=== PATIENT | female | born 1955 | race Caucasian/White ===

== ENCOUNTER 2023-09-10 00:23 | Inpatient (IN) | payer MEDICARE, SELFPAY ==
[2023-09-09 20:22] VITALS: BP 114/69; BMI 25.2
[2023-09-09 20:27] LABS: Glucose - Point of Care 578 mg/dl (70-99)
[2023-09-09 20:42] LABS: % Basophils 0.3 % (0-2); % Eosinophils 0.3 % (0-6); % Immature Granulocytes 0.4 % (0-0.5); % Lymphocytes 3.2 % (20.5-51.1); % Monocytes 6.4 % (1.7-9.3); % Neutrophils 89.4 % (42.2-75.2); Absolute Lymphocytes 0.3 10^3/uL (1.2-3.4); Absolute Monocytes 0.7 10^3/uL (0.1-0.6); Absolute Neutrophils 9.1 10^3/uL (1.4-6.5); Hematocrit 36.6 % (37.0-47.0); Mean Corp Hgb Conc. 35.5 g/dL (33.0-37.0); Mean Corpuscular Hgb 31.9 pg (27.0-31.0); Mean Corpuscular Volume 89.9 fL (81.0-99.0); Nucleated Red Blood Cells % 0 %; Platelet Count 183 10^3/uL (130-400); Red Blood Cell Count 4.07 10^6/uL (4.20-5.40); Red Cell Dist. Width 13.3 % (11.5-14.5); White Blood Cell Count 10.1 10^3/uL (4.8-10.8)
[2023-09-09 20:54] LABS: COVID-19 Antigen Negative (Negative)
[2023-09-09 20:54] LABS: Lactic Acid 4.4 mmol/L (0.7-2.0)
[2023-09-09 20:56] LABS: ALT (SGPT) 15 U/L (0-35); AST (SGOT) 16 U/L (14-36); Albumin 3.6 g/dl (3.5-5.0); Alkaline Phosphatase 85 U/L (38-126); Blood Urea Nitrogen 27 mg/dl (7-17); Calcium 8.9 mg/dl (8.4-10.2); Carbon Dioxide 19 mmol/L (22-30); Chloride 104 mmol/L (98-107); Estimated Creatinine Clearance 49 ml/min; Potassium 3.5 mmol/L (3.5-5.1); Sodium 137 mmol/L (135-145); Total Bilirubin 0.7 mg/dl (0.2-1.3); Total Protein 6.1 g/dl (6.3-8.2); eGFR > 60.00
[2023-09-09 21:00] VITALS: BP 117/76
[2023-09-09 21:08] LABS: Glucose 671 mg/dl (70-99)
[2023-09-09 21:40] LABS: Urine Albumin Negative (Neg - Trace); Urine Bilirubin Negative (Negative); Urine Character Clear (Clear); Urine Color Yellow; Urine Glucose 3+ (Negative); Urine Ketone Negative (Negative); Urine Leukocyte Negative (Negative); Urine Nitrite Negative (Negative); Urine Occult Blood Negative (Negative); Urine Urobilinogen Negative (Neg - 1+)
[2023-09-09 21:43] LABS: Venous Blood Gas B.E. -5.6 mmol/L (-4 to +4); Venous Blood Gas HCO3 17.7 mmol/L (22-27); Venous Blood Gas O2 Sat % 99.6 %; Venous Blood Gas pCO2 28 mmHg (35-48); Venous Blood Gas pH 7.41 (7.32-7.43); Venous Blood Gas pO2 228 mmHg (30-50)
[2023-09-09 22:00] VITALS: BP 124/65
--- NOTE | 2023-09-09 22:00 | ED.GENMED ---
History of Present Illness
General
Chief Complaint: Blood Sugar Problem
Source: ambulance crew
Time Seen by Provider: 09/09/23 21:50
Travel History
Have you had any contact with someone who has COVID-19?: Unable to Answer
Do you have any symptoms of coronavirus? Fever > 100 degrees, chills, cough, shortness of breath, sore throat, loss of taste or smell, muscle aches, or headache?: Unable to Answer
History of Present Illness
History of Present Illness:
68-year-old female sent to the emergency room from halfway for evaluation of high sugar. An Accu-Chek obtained before dinner measured greater than 400. Covering physician recommended patient be sent to the emergency room. Upon arrival here
the patient noted to be febrile. Patient is aphasic and does not provide any history.
Past History
Past History
ED Past Medical History: Cancer (Right breast cancer), HTN, Hypercholesterolemia, NIDDM and Other (osteoporosis, Alzheimer's dementia)
ED Past Surgical History: Gynecological (Right breast lumpectomy)
Patient has exhibited threatening behavior?: No
PSI?: No
Social History
Tobacco: Non-smoker
Alcohol: None
Personal:
Living: halfway
Family History
Family History: Unable to obtain
Phy Exam
Physical Exam
Physical Exam:
General: Awake, Alert, nonverbal, appears chronically ill
Vitals: Febrile, hypoxic on room air
Head: Atraumatic
Eyes: Pupils equal, EOMI
Throat: Airway intact, no exudates, dry mucosa
Neck: Trachea midline
Lungs: Rhonchi bilateral bases
Heart: Regular rate, no murmurs
Abd: Soft, Nontender, No pulsatile mass
Neuro: Grossly nonfocal
Skin: Warm, dry, no rash
Extremities: pulses equal b/l, no edema
Course
Orders/Labs/Results
Orders:
Orders
09/09/23 20:29
Electrocardiogram (*1) Urgent
Reason for Study: Fatigue / Weakness
09/09/23 20:30
EKG- Treatment ONCE
09/09/23 20:31
COVID-19 Antigen Urgent
Source: Nasal Swab
Complete Blood Count/With Diff Urgent
Comprehensive Metabolic Panel Urgent
Influenza A+B Rapid Molecular Urgent
SHARA Source: Nasal Swab
Specimen Description:
Date Specimen was Collected: 09/09/23
Time Specimen was Collected: 20:29
09/09/23 20:33
Lactic Acid Urgent
Blood Culture Urgent
SHARA Source: Blood/Venous
Specimen Description:
09/09/23 21:31
Urinalysis Reflex To Culture Urgent
Date Specimen was Collected: 09/09/23
Time Specimen was Collected: 20:29
09/09/23 21:35
B-Hydroxybutyrate Urgent
Venous Blood Gas Urgent
%Oxygen/Room Air: 95%/4L
09/09/23 21:57
0.9% Sodium Chloride 1000 ml [Nss] 1,000 ml IV BOLUS
09/09/23 21:58
Insulin Aspart [NOVOLOG vial] 10 units SC NOW STA
09/09/23 21:59
Acetaminophen [Tylenol] 650 mg PO NOW STA
09/09/23 22:13
Blood Culture Urgent
SHARA Source: Blood/Venous
Specimen Description:
09/09/23 22:31
CR Chest Portable - 1 View Urgent
Comment:
Reason For Exam: fever, hypoxia
Reason Study Needs to be Portable: Unable to Transport
09/09/23 23:16
Piperacillin/Tazo 4.5 Gram [Zosyn] 4.5 gram in 100 ml IV NOW
09/09/23 23:58
Admit/Transfer Patient As Directed
Co-Sign Provider:
Level of Care: Inpatient admission
Assign to:: Telemetry
Physician / Group: Buzz
Diagnosis: Fever, Hyperglycemia
Reason for Telemetry: Arrhythmia
Date to Stop Telemetry: 09/12/23
Time to Stop Telemetry: 11:00
Reason for Hospitalization: Fever, Hyperglycemia
Expected length of stay greater than two midnights?: Yes
ELOS- Estimated Length of Stay in days: 3
I certify the patient meets the requirements for IP care: Yes
09/09/23 23:59
Vancomycin [Vancocin] 1,500 mg 0.9% Sodium Chloride [Nss] 20 ml 0.9% Sodium Chloride 250 ml [Nss] 250 ml IV NOW
09/10/23 00:04
Code Status As Directed
Resuscitation Status: Do not resuscitate
Based on pt advanced directive or healthcare POA form: Yes
09/10/23 00:05
DNR Bracelet Application ONCE
09/10/23 00:28
0.9% Sodium Chloride 1000 ml [Nss] 1,000 ml IV 150 mls/hr
Acetaminophen [Tylenol] 650 mg PO Q4HPRN PRN
Dextrose 50%-Water [Dextrose 50% Syringe] 12.5 grams IV F25GHEL PRN
Glucagon [GlucaGen] 1 mg IM PRN PRN
Ondansetron Injectable [Zofran] 4 mg IV Q6HPRN PRN
Piperacillin/Tazo 3.375 Gram [Zosyn] 3.375 gram in 50 ml IV Q6H
09/10/23 00:28
Activity As Directed
Activity Level: Ambulate
With Assistance
Bedside Glucose Monitoring As Directed
Frequency: AC&HS
Comment: Change to q6h if pt on TPN, tube feeding or not eating
Bladder Scan As Directed
Follow Bladder Retention/Intermittent Cath Algorithm?: Yes
PRN if no void in __ hours: 6
Frequency: Per Retention Algorithm
If Bladder Scan Result >: 400
then:: Straight cath
I/O [Intake/ Output] As Directed
Frequency: Per unit guidelines
Precautions As Directed
Type of Precautions: Aspiration
Straight Cath As Directed
Frequency: Per Retention Algorithm
Additional Instructions: straight cath as needed per acute urinary retention algorithm for 24 hrs
Additional Instructions: for bladder scan greater than 400 mL
Vital Signs As Directed
Frequency: Per unit guidelines
Weight As Directed
Frequency: Daily
Oxygen Therapy [O2 Therapy] [RESP] Routine
Titrate/Wean O2 to maintain O2 sat greater than (%): 94
Ot Eval And Treat Routine
PT Consult [Pt Eval And Treat] Routine
Activity Level: Ambulate
With Assistance
Speech Therapy Eval & Treat Routine
DX Deep Vein Thrombosis Video Routine
09/10/23 00:30
Creatine Phosphokinase Routine
Procalcitonin Routine
PCT Algorithmm Indication: Sepsis
TSH Reflex To Free T4 Routine
09/10/23 01:00
Insulin Glargine Lantus [Lantus] 14 units Subcutaneous Insulin Syringe [Syringe-Insulin] 0 unit SC ONCE
09/10/23 06:00
Basic Metabolic Panel IN AM
Complete Blood Count/No Diff IN AM
Glycohemoglobin (HgbA1c) IN AM
09/10/23 07:30
Insulin Aspart Corrective Mod [Novolog Flexpen-Moderate Resistance] See Protocol SC AC
09/10/23 08:00
Aspirin Chewable [Low Strength Aspirin] 81 mg PO DAILY
Lisinopril [Zestril] 20 mg PO DAILY
Pantoprazole [Protonix IV] 40 mg IV DAILY
Risperidone [Risperdal] 0.5 mg PO BID
09/10/23 18:00
Enoxaparin Sodium [Lovenox] 40 mg SC QPM
09/10/23 22:00
Atorvastatin [Lipitor] 20 mg PO HS
insulin glargine 16 unit SC HS
09/11/23 Breakfast
NPO
Allow oral meds: Yes
Allow clear liquids: Sips of Clears
09/12/23 11:00
DC Protocol for Telemetry ONCE
Abnormal Lab Results
09/09/23 09/09/23 09/09/23
20:26 20:31 20:33
RBC 4.07 L 10^6/uL
(4.20-5.40)
Hct 36.6 L %
(37.0-47.0)
MCH 31.9 H pg
(27.0-31.0)
Absolute Neuts (auto) 9.1 H 10^3/uL
(1.4-6.5)
Absolute Lymphs (auto) 0.3 L 10^3/uL
(1.2-3.4)
Absolute Monos (auto) 0.7 H 10^3/uL
(0.1-0.6)
Neutrophils % 89.4 H %
(42.2-75.2)
Lymphocytes % 3.2 L %
(20.5-51.1)
VBG pCO2
VBG pO2
VBG HCO3
Carbon Dioxide 19 L mmol/L
(22-30)
BUN 27 H mg/dl
(7-17)
Glucose 671 H* mg/dl
(70-99)
Lactic Acid 4.4 H* mmol/L
(0.7-2.0)
Total Protein 6.1 L g/dl
(6.3-8.2)
Urine Glucose
POC Glucose 578 H* mg/dl
(70-99)
09/09/23 09/09/23 09/09/23
21:31 21:35 23:22
RBC
Hct
MCH
Absolute Neuts (auto)
Absolute Lymphs (auto)
Absolute Monos (auto)
Neutrophils %
Lymphocytes %
VBG pCO2 28 L mmHg
(35-48)
VBG pO2 228 H mmHg
(30-50)
VBG HCO3 17.7 L mmol/L
(22-27)
Carbon Dioxide
BUN
Glucose
Lactic Acid
Total Protein
Urine Glucose 3+ A
(Negative)
POC Glucose 440 H mg/dl
(70-99)
09/09/23 20:31
09/09/23 20:31
Vital Signs
Initial and Last Documented VS:
Initial Vital Signs
Temp Pulse Resp BP Pulse Ox
102.4 F H 97 26 114/69 98
09/09/23 20:22 09/09/23 20:22 09/09/23 20:22 09/09/23 20:22 09/09/23 20:22
Last Documented Vital Signs
Temp Pulse Resp BP Pulse Ox
99.6 F 74 18 138/77 98
09/09/23 23:57 09/10/23 00:30 09/10/23 00:30 09/10/23 00:00 09/10/23 00:30
MDM/Problems Addressed
Differential Diagnosis Includes:
Pneumonia, urinary tract infection, influenza, other viral illness, bacteremia
MDM/Problems Addressed:
Patient sent to the emergency room for high glucose. Found to be febrile here. Serum glucose 671. No significant anion gap. pH is normal on a venous blood gas. Beta hydroxybutyrate levels normal. Therefore no evidence for DKA. Urinalysis not
consistent with urinary tract infection. COVID and flu are negative. Chest x-ray does not show convincing evidence for pneumonia though the patient is a bit hypoxic and he is not normally on supplemental oxygen. Pneumonia still a possibility with
x-ray changes lagging behind. Patient will require hospitalization. Broad-spectrum antibiotics initiated given fever and elevated lactate the lactate may be related to her hyperglycemia as well. She has not been tachycardic or hypotensive. Liter
of normal saline given. 10 units of NovoLog
Chronic conditions affecting care: HTN and Other (Dementia)
Acute Exacerbation and/or Progression of Chronic Illness: DM
*Radiology
Radiology exam reviewed: preliminary read by ED provider (Reviewed the patient's chest x-ray see no infiltrate)
*Pulse Oximetry
Patient hypoxic: yes
*EKG
Interpreted by ED Provider?: Yes
Heart Rate: 98
Rate: normal
Rhythm: sinus
QRS Pattern: right bundle branch block
Ischemia: non-specific ST changes
*X Ray Examiner Of Aircraft Interpretation
Rate: normal
Interpretation: normal
Rhythm: sinus
*Critical Care Note
Total Time (30-74mins, 75-104mins- exclusive of procedures): 35 min
comment:
Critical care statement: A total of 35 minutes of critical care time was provided for this patient. This includes management of unstable vital signs, evaluation of the patient at bedside, reviewing the patient's pertinent medical records, discussion
with consultants, review of old EKGs and review of pertinent medical records. This time with separate from time utilized to perform the aforementioned documented procedures
Patient Management
Social determinants of health affecting care: Living situation
ED Attending Note
-
Portions of this chart may have been created with voice recognition software.� Occasional wrong word or��sound alike� substitutions may have occurred due to the inherent limitations of voice recognition software.
Discharge Plan
Departure
Patient Disposition: Admit
Date of Disposition: 09/09/23
Time of Disposition: 23:20
Admit to: IMU
Presentation/result/management discussed w/ accepting MD/DO: Hospitalist
Condition: Fair
Discharge Problem:
Acute hyperglycemia, Fever
Interventions
Interventions:
*Risk Screen - Suicide Last Done: 09/09/23 20:28
*General Assessment Last Done: 09/09/23 20:28
*Neglect/Abuse Screening Last Done: 09/09/23 20:28
*ED COVID-19 Vaccine History Last Done: 09/09/23 20:28
ED- Neurological Assessment Last Done: 09/09/23 20:28
[2023-09-09 22:02] LABS: B-Hydroxybutyrate 0.12 mmol/L (0.02-0.27)
[2023-09-09] MEDS: NSS 1000 IV (22:06)
[2023-09-09] MEDS: TYLENOL 650 MG PO (22:09)
[2023-09-09] MEDS: NOVOLOG vial 10 UNITS SC (22:10)
[2023-09-09 23:00] VITALS: BP 130/118
[2023-09-09 23:23] LABS: Glucose - Point of Care 440 mg/dl (70-99)
[2023-09-09] MEDS: ZOSYN 100 IV (23:25)
[2023-09-10] VITALS (12 sets, daily range): BP systolic 133–185; BP diastolic 75–89; PULSE 97; O2SAT 96; BMI 25.6
[2023-09-10] MEDS: VANCOCIN 300 ML IV (00:03)
[2023-09-10] MEDS: VANCOCIN 300 MG IV (00:03)
--- NOTE | 2023-09-10 00:11 | HPS.HSE ---
Family Physician
-
Family Physician: Martínez Arizmendi
Chief Complaint
-
Hyperglycemia
History of Present Illness
Patient is a 68y F with PMH significant for advanced dementia and chronic aphasia who presents to ED from local [facility] for evaluation of hyperglycemia. Glucose at the [facility] was > 400 on AccuCheck before dinner and patient was sent to the ED for
evaluation. There was no report of any other symptoms, complaints, etc. In the ED, patient was noted to be febrile to 102.4.
Patient is awake and alert. She does not speak, but she nods her head to answer Y/N questions. She denies any specific complaints at the time of my exam including pain, dyspnea, nausea, etc.
Medical History
Past Medical History
Past Medical History: Reports Other
Additional Past Medical History:
Senile Dementia
Chronic Aphasia
DM-II
Hypertension
Chronic Dysphagia
Breast Cancer
Past Surgical History: Reports Other
Additional Past Surgical History:
Right Lumpectomy
Social History
Unable to obtain full social history at this time due to: Patient Non-verbal
Family History
Family History: Unable to Obtain
Allergies / Home Medications
Allergies reflects when Allergies were last updated in [facility].
Home Medications with original date entered in [facility]
Allergy/Medication List:
Allergies
Allergy/AdvReac Type Severity Reaction Status Date / Time
Sulfa (Sulfonamide Allergy Hives Verified 09/20/22 12:52
Antibiotics)
Home Medications
atorvastatin 20 mg tablet 20 mg PO HS High cholesterol 04/19/20
risperidone 0.5 mg tablet 0.5 mg PO BID Schizoaffective disorder 04/19/20
acetaminophen 500 mg tablet (Tylenol Extra Strength) 500 mg PO BID Pain 06/13/21
aspirin 81 mg chewable tablet 81 mg PO DAILY Blood clot prevention/tx 09/21/21
lisinopril 20 mg tablet 20 mg PO DAILY Blood pressure 09/21/21
insulin glargine 100 unit/mL (3 mL) subcutaneous pen 16 unit SC HS Diabetes 03/21/22
cyanocobalamin (vitamin B-12) 1,000 mcg sublingual tablet 1,000 mcg PO BID Supplement 09/20/22
metformin 1,000 mg tablet 1,000 mg PO BIDWMEAL 09/09/23
Review of Systems
-
Unable to obtain full review of systems at this time due to: Patient Non-verbal
History Source: Patient (Limited ROS given communication issues.)
Respiratory: Denies Trouble Breathing
Cardiac: Denies Chest Pain
Abdomen/GI: Denies Nausea or Vomiting
Musculoskeletal: Denies Joint Pain
Neurological: Denies Headache
Physical Exam
Vital Signs
Vital Signs
Temp Pulse Resp BP Pulse Ox
99.6 F 84 19 130/118 97
09/09/23 23:57 09/09/23 23:45 09/09/23 23:45 09/09/23 23:00 09/09/23 23:45
Physical Exam
General: Other (68y F in no acute distress.)
HEENT: Moist mucous membranes and PERRLA
Respiratory: Clear; No Wheezes, Rales or Rhonchi
Cardiac: S1/S2 and Regular Rhythm; No Murmur
GI: Soft, Non Tender, Non Distended and Normal Bowel Sounds
Musculoskeletal: No Clubbing, No Cyanosis and No Edema
Neuro: Awake, Alert and Other (No verbal communications. Nods to Y/N questions. Moves all extremities spontaneously.)
Psych: No Agitated
Laboratory Results
-
09/09/23 20:31
09/09/23 20:31
Laboratory Results
Lactic Acid 4.4 mmol/L (0.7-2.0) H* 09/09/23 20:33
Total Bilirubin 0.7 mg/dl (0.2-1.3) 09/09/23 20:31
AST 16 U/L (14-36) 09/09/23 20:31
ALT 15 U/L (0-35) 09/09/23 20:31
Alkaline Phosphatase 85 U/L (38-126) 09/09/23 20:31
Impression/Plan
-
A/P: Patient is a 68y F with PMH significant for dementia and chronic aphasia who presents to ED from local [facility] for evaluation of hyperglycemia and is not to be febrile.
DM-II with Hyperglycemia
- Admit for further evaluation and treatment.
- Not consistent with DKA.
- Insulin dose was adjusted as of 09/02 - but unclear whether increased or decreased (just see order was changed on 09/02).
- Continue basal : bolus insulin regimen and adjust as needed for improved control.
- IVF support.
- Update A1C.
Fever
- Unclear etiology.
- Patient in no distress. Denies all specific complaints on limited ROS.
- ? aspiration as had had similar in the past / has chronic dysphagia
- COVID / Influenza are negative.
- Will continue IV Zosyn for now.
- Follow-up culture data.
- Check procalcitonin.
- Follow fever curve. Monitor for any specific / focal symptoms.
Senile Dementia
- Stable. Continue risperidone.
Chronic Aphasia
Chronic Dysphagia
- NPO pending Speech evaluation.
- Aspiration precautions.
Benign Hypertension
- Stable. Continue lisinopril with holding parameters.
DVT Prophylaxis: Lovenox
Code Status: DNR per [facility] record.
[2023-09-10] MEDS: LANTUS 0.140000000000000013 UNITS SC (00:39)
[2023-09-10 00:57] LABS: Creatine Phosphokinase 104 U/L (30-135)
[2023-09-10 01:26] LABS: Procalcitonin 0.08 ng/ml (0.0-0.25)
[2023-09-10] MEDS: NSS 1000 IV ×3 (01:59→21:24)
[2023-09-10 02:36] LABS: TSH Reflex To Free T4 1.04 uIU/ml (0.47-4.68)
[2023-09-10 05:19] LABS: Hematocrit 35.4 % (37.0-47.0); Hemoglobin 12.3 g/dL (12.0-16.0); Mean Corp Hgb Conc. 34.7 g/dL (33.0-37.0); Mean Corpuscular Hgb 31.7 pg (27.0-31.0); Mean Corpuscular Volume 91.2 fL (81.0-99.0); Platelet Count 178 10^3/uL (130-400); Red Blood Cell Count 3.88 10^6/uL (4.20-5.40); Red Cell Dist. Width 13.3 % (11.5-14.5); White Blood Cell Count 12.7 10^3/uL (4.8-10.8)
[2023-09-10 06:07] LABS: Blood Urea Nitrogen 21 mg/dl (7-17); Calcium 8.4 mg/dl (8.4-10.2); Carbon Dioxide 23 mmol/L (22-30); Chloride 109 mmol/L (98-107); Estimated Creatinine Clearance 56 ml/min; Glucose 90 mg/dl (70-99); Potassium 3.6 mmol/L (3.5-5.1); Sodium 143 mmol/L (135-145); eGFR > 60.00
[2023-09-10] MEDS: ZOSYN 50 IV ×4 (06:55→23:36)
[2023-09-10 07:15] LABS: Glucose - Point of Care 204 mg/dl (70-99)
[2023-09-10 08:07] LABS: Glucose - Point of Care 99 mg/dl (70-99)
[2023-09-10] MEDS: LOW STRENGTH ASPIRIN 81 MG PO (08:34)
[2023-09-10] MEDS: PROTONIX IV 40 MG IV (08:34)
[2023-09-10] MEDS: ZESTRIL 20 MG PO (08:34)
[2023-09-10] MEDS: RISPERDAL 0.5 MG PO ×2 (08:34→19:58)
[2023-09-10] MEDS: NSS (PRESERVATIVE FREE) 10 ML IV (08:35)
--- NOTE | 2023-09-10 09:08 | W.PN.HOSP.TC ---
Today's Communication/Plan
-
consult DM EXTRACTIONS TECHNOLOGIST
consult ID
follow cultures
trend lactic acid
Assessment / Plan
Assessment / Plan
pt is a 68 year old female
Type DM-II with Hyperglycemia (was here 2021 and meds stopped due to hypoglycemia but now on insulin and metformin)--Not consistent with DKA--Insulin dose was adjusted as of 09/02 but unclear whether increased or decreased (just see order was changed
on 09/02)--Continue basal:bolus insulin regimen and adjust as needed for improved control--IVF support--Update K6H--dctqapj DM EXTRACTIONS TECHNOLOGIST
Fever with lactic acidosis--Unclear etiology--Patient in no distress.� Denies all specific complaints on limited ROS but unclear reliability--? aspiration as had had similar in the past/has chronic dysphagia--Covid/flu/CXR/procalcitonin neg--cont IV
zosyn--follow lactates--consult ID
Senile Dementia (not reliable historian)--Stable--Continue risperidone.
Chronic Aphasia/Chronic Dysphagia--apprec speech--VSE pending--Aspiration precautions.
Essential Hypertension--Continue lisinopril with holding parameters.
DVT Prophylaxis:� Lovenox
Code Status:� DNR per NH record.
Anticipated Discharge: > 48 hours
Subjective/Interval History
-
Date of Service: September 10, 2023
pt without c/o
Objective Data
-
Labs:
Laboratory Results
09/09/23 09/10/23
20:31 05:03
WBC 12.7 H
Hgb 12.3
Hct 35.4 L
Plt Count 178
Sodium 143
Potassium 3.6
Chloride 109 H
Carbon Dioxide 23
BUN 21 H
Creatinine 0.7
Glucose 671 H* 90
Calcium 8.4
Vital Signs:
max temp for 24 hours
02/27/24
20:22
Temp 102.4 F H
Vital Signs
Temp Pulse Resp BP Pulse Ox
97.9 F 57 14 140/76 98
09/10/23 07:00 09/10/23 07:00 09/10/23 07:00 09/10/23 07:00 09/10/23 07:00
Review of Systems
-
Unable to obtain full review of systems at this time due to: Dementia (not great historian)
Physical Exam
-
General: Well Developed, Well Nourished and No Apparent Distress
HEENT: Normocephalic and Atraumatic
Respiratory: Clear to Auscultation; Negative Wheezes, Rales, Rhonchi or Crackles
Cardiac: Regular Rhythm and S1/S2; Negative Murmur
GI: Soft, Nontender, Nondistended and Normal Bowel Sounds
Musculoskeletal: No Clubbing, No Cyanosis and No Edema
Neuro: Awake
Psych: Calm
--- NOTE | 2023-09-10 09:24 | PTOTSP ---
SPEECH THERAPY SWALLOW EVALUATION:
Patient presents with clinical signs of oropharyngeal dysphagia, likely chronic related to history of dementia and known oropharyngeal dysphagia at baseline, and acutely exacerbated by current hyperglycemia/fever. Patient is at high risk for
aspiration and related complications due to cognitive impairment and impulsivity. Recommend Videofluoroscopic Swallowing Study to further define swallow physiology at this time. Recommend patient to be NPO except for necessary medications crushed in
puree until results of VSE. Speech therapy to follow, provide additional recommendations following results of VSE, and continue to provide diagnostic swallow therapy as appropriate.
RECOMMEND:
1) Videofluoroscopic Swallowing Study
2) NPO except for necessary medications crushed in puree until results of VSE
3) Speech therapy to follow, provide additional recommendations following results of VSE, and continue to provide diagnostic swallow therapy as appropriate
--- NOTE | 2023-09-10 09:39 | CM ---
Patient seen at bedside with physician. Patient is aphasic but did answer some questions. Patient Lives at [facility] in the memory care unit. CM called to the facility. OSWALD Bowen spoke with CM. Patient is independent in ambulation with no
assistive devices but is non verbal a majority of the time. Patient has a standing DM medication at the facility but no sliding scale, PRN's are not allowed at the personal care. Patient does not participate with PT/OT. Patient Nurse stated that
patient could return but needed clear orders for DM medications. Patient daughter Amanda is primary contact. CM will call to review plan for discharge with Daughter. CM will continue to follow for discharge planning needs.
Plan; return to [facility] vs SNF pending medical treatment of care
[2023-09-10 09:58] LABS: Glycohemoglobin (HgbA1c) 6.7 % (4.0-5.6)
--- NOTE | 2023-09-10 10:49 | PN.DE.MGMTRT ---
Insulin Management
- -
09/10/2023 Diabetes Management Consult
Patient admitted from Memory Care unit at [facility] due to hyperglycemia, found to have fever. PMH: R breast CA, HTN, HCL, type 2 diabetes, senile dementia, osteoporosis. Prior to admission diabetes regimen included metformin 1000 mg BID and lantus
16 units @ hS. A1C 6.7%, cr .7, egfr >60. Patient glucose on arrival 671, given 10 units novolog. 14 units HS lantus given, fasting glucose 99.
Lantus 16 units @ HS ordered. Corrective insulin changed from moderate to low. Patient is NPO. When diet resumes will restart metformin 1000 mg BID.
Will follow
Diabetes History
- -
Type of Diabetes: 2 requiring insulin
Pre-Admission Diabetes Regimen
09/09/23 09/10/23
20:31 05:03
Creatinine 0.8 0.7
Lab Results
Hemoglobin A1c 6.7 % (4.0-5.6) H 09/10/23 05:03
Insulin Pump Settings
IP Diabetes Regimen
09/09/23 09/09/23 09/09/23
20:26 20:31 23:22
Glucose 671 H*
POC Glucose 578 H* 440 H
09/10/23 09/10/23 09/10/23
00:38 05:03 08:06
Glucose 90
POC Glucose 204 H 99
Patient Education
[2023-09-10 12:14] LABS: Glucose - Point of Care 131 mg/dl (70-99)
[2023-09-10] MEDS: NOVOLOG FLEXPEN-LOW RESISTANCE SC (12:23)
--- NOTE | 2023-09-10 12:59 | PTOTSP ---
SPEECH THERAPY VIDEOFLUOROSCOPIC SWALLOWING STUDY:
Patient presents with moderate oral dysphagia and moderate-severe pharyngeal dysphagia characterized by:
-Aspiration of thin liquid via teaspoon (PAS 7) and cup (PAS 8); aspiration of Mildly-thick liquid via straw (PAS 7)
-Penetration of Mildly-thick liquid via teaspoon (PAS 2) and cup (PAS 4), Moderately-thick liquid via teaspoon (PAS 4)
Aspiration/penetration episodes inconsistently elicited cough response to airway invasion. Oropharyngeal dysphagia is chronic related to prior history of dementia, and acutely exacerbated due to current AMS secondary to hyperglycemia/fever. Patient
is at high risk for aspiration and related complications given cognitive impairments and impulsivity. Recommend cautious oral diet of IDDSI Level 4 Puree and IDDSI Level 2 Moderately-thick liquids. Medications crushed in puree. Strict aspiration
precautions includin:1 assist/supervision; small single sips/bites; alternate textures; upright positioning; oral care QID and increased mobility as able to reduce risk for nosocomial infection. Discontinue oral diet and contact ST for
re-assessment should patient present with signs of aspiration or a decline in mental or respiratory status. Speech therapy to follow, monitor CXR and labs, assess diet tolerance and modify as appropriate, provide continued education regarding
aspiration risks/precautions.
RECOMMEND:
1) IDDSI Level 4 Puree and IDDSI Level 2 Moderately-thick liquids
2) Medications crushed in puree
3) Strict aspiration precautions includin:1 assist/supervision; small single sips/bites; alternate textures; upright positioning; oral care QID and increased mobility as able to reduce risk for nosocomial infection
4) Discontinue oral diet and contact ST for re-assessment should patient present with signs of aspiration or a decline in mental or respiratory status
5) Speech therapy to follow, monitor CXR and labs, assess diet tolerance and modify as appropriate, provide continued education regarding aspiration risks/precautions
[2023-09-10 13:17] LABS: Lactic Acid 1.9 mmol/L (0.7-2.0)
[2023-09-10] MEDS: NSS IV (16:25)
--- NOTE | 2023-09-10 16:37 | CON.ID ---
Consultation
-
Date/Time Consultation Requested: 09/10/2023 09:20
Date/Time Consultation Performed: 09/10/2023 1600
Requesting Provider: Dr. Alicea
Performing Provider: Dr. Cerda
Reason for Consultation: Fever
Chief Complaint / Past History
History of Present Illness
Autumn Wharton is a 68-year-old female being evaluated at the request of Dr. Alicea in regards to fever. History is obtained from chart review along with patient interview.
The patient has a significant past medical history of Alzheimer's disease and presents to [facility] from a local facility after she was found to have an elevated blood sugar level in the 400 range. At presentation, she was also found to be
febrile to 102.4 �F. She was started on empiric antibiotics, and Infectious Diseases is asked to comment upon further antimicrobial therapy management.
At this point in time she denies any pain. She admits to cough, but does not have any sputum production. She denies any chest pain. She denies any abdominal pain, nausea or vomiting. She denies any dysuria.
Past History
Additional Past Medical History:
Breast cancer
HTN
Dyslipidemia
DM
Alzheimer's
Aphasia
Additional Past Surgical History:
Right lumpectomy
Allergy History:
Sulfa (Sulfonamide Antibiotics) Allergy (Verified 09/20/22 12:52)
Hives
Medications Reviewed: Yes
Current Antibiotics:
Zosyn 3.375 g IV every 6 hours
Social History
Tobacco: Non-Smoker
Alcohol: None
Drug: None
Personal:
Living: Senior Living
Family History
Family History: Not Pertinent
Review of Systems
Vital Signs
Temp Pulse Resp BP Pulse Ox
97.6 F 71 20 158/85 98
09/10/23 15:00 09/10/23 15:00 09/10/23 15:00 09/10/23 15:00 09/10/23 15:00
Physical Exam
Physical Exam
Constitutional: No Acute Distress, Comfortable and Non-toxic
Eyes: Pupils Equal, Pupils Round, No Conjunctival Hemorrhage and Sclera Anicteric
Oral: No Thrush and No Ulcers
Cardiovascular: Regular Rate and S1/S2; Negative S3/S4
Pulmonary: Clear, Coarse and Non Labored; Negative Wheezes or Rales
Gastrointestinal: Soft, Non Tender, Non Distended, Normal Bowel Sounds, No Rebound, No Guarding and Hepatomegaly
Genito-Urinary: Negative Callejas, Suprapubic Tenderness or CVA Tenderness
Extremities: Edema; Negative Cyanosis or Erythema
Musculoskeletal: Negative Joint Swelling or Joint Effusion
Skin: Warm and Dry; Negative Rash or Jaundice
Wound: None
Neurological: Awake and Alert
Psychological: Confused
Lab / Diagnostic Study Results
09/10/23 05:03
09/10/23 05:03
Abs Immat Gran (auto) 0.0 10^3/uL (0-0.05) 09/09/23 20:31
Absolute Neuts (auto) 9.1 10^3/uL (1.4-6.5) H 09/09/23 20:31
Absolute Lymphs (auto) 0.3 10^3/uL (1.2-3.4) L 09/09/23 20:31
Absolute Monos (auto) 0.7 10^3/uL (0.1-0.6) H 09/09/23 20:31
Absolute Basos (auto) 0.0 10^3/uL (0-0.2) 09/09/23 20:31
Immature Gran % 0.4 % (0-0.5) 09/09/23 20:31
Neutrophils % 89.4 % (42.2-75.2) H 09/09/23 20:31
Lymphocytes % 3.2 % (20.5-51.1) L 09/09/23 20:31
Monocytes % 6.4 % (1.7-9.3) 09/09/23 20:31
Eosinophils % 0.3 % (0-6) 09/09/23 20:31
Basophils % 0.3 % (0-2) 09/09/23 20:31
Lactic Acid 1.9 mmol/L (0.7-2.0) 09/10/23 12:44
Procalcitonin 0.08 ng/ml (0.0-0.25) 09/10/23 00:30
Microbiology Results
Micro:
09/10/23 05:03 MRSA Screen - Pending
Nose
09/09/23 22:13 Blood Culture - Pending
Blood/Venous
09/09/23 20:31 Influenza Types A & B (MICHELLE) - Final
Nasal Swab Negative for Influenza A & B, NAAT
Negative results must be combined with clinical observations
and patient history.
Nucleic Acid Amplification test (NAAT)performed on the
[employer] platform.
09/09/23 20:33 Blood Culture - Pending
Blood/Venous
Imaging:
09/09/2023 CXR (portable): Lungs are clear. No pleural effusion or pneumothorax seen. Heart is enlarged with mild aortic arch calcification. No acute disease is noted. Please see full dictation for additional detail. Film personally viewed.
Assessment / Plan
Fever
Leukocytosis
Lactic acidosis
Elevated glucose; improved
Breast cancer
HTN
Dyslipidemia
DM
Alzheimer's
Aphasia
Recommendations:
Continue current empiric antibiotics (Zosyn).
Blood cultures are currently pending. Will follow
Repeat cultures for temperature greater than 101 degrees.
Monitor white count and temperature curve.
Will further de-escalate antibiotics as additional data is returned.
[2023-09-10 17:07] LABS: Glucose - Point of Care 278 mg/dl (70-99)
[2023-09-10] MEDS: LOVENOX 40 MG SC (18:47)
[2023-09-10] MEDS: NOVOLOG FLEXPEN-LOW RESISTANCE 2 UNITS SC (19:51)
[2023-09-10 19:53] LABS: Glucose - Point of Care 243 mg/dl (70-99)
--- NOTE | 2023-09-10 20:04 | EDRN ---
Vital signs captured from previous shift.
[2023-09-10 21:25] LABS: Glucose - Point of Care 264 mg/dl (70-99)
[2023-09-10 21:36] LABS: Lactic Acid 1.7 mmol/L (0.7-2.0)
[2023-09-10] MEDS: LIPITOR 20 MG PO (21:50)
[2023-09-10] MEDS: LANTUS 0.160000000000000003 UNITS SC (21:52)
--- NOTE | 2023-09-10 23:57 | PTCARENOTE ---
Received patient from ER. Patient awake oriented to self. Knows name and and is conversing with staff. Patient required b/l mitts as she pulled her IV out. Bed alarm intact, video med sitter and call salazar in reach. Tolerating b/l mitts.
[2023-09-11] VITALS (7 sets, daily range): BP systolic 157–182; BP diastolic 75–100
[2023-09-11] MEDS: NSS 1000 IV ×2 (04:20→12:22)
[2023-09-11] MEDS: ZOSYN 50 IV ×2 (05:01→12:22)
[2023-09-11 07:28] LABS: Glucose - Point of Care 107 mg/dl (70-99)
[2023-09-11 07:35] LABS: Hemoglobin 11.1 g/dL (12.0-16.0); Mean Corp Hgb Conc. 34.7 g/dL (33.0-37.0); Mean Corpuscular Hgb 31.3 pg (27.0-31.0); Mean Corpuscular Volume 90.1 fL (81.0-99.0); Platelet Count 153 10^3/uL (130-400); Red Blood Cell Count 3.55 10^6/uL (4.20-5.40); Red Cell Dist. Width 13.5 % (11.5-14.5); White Blood Cell Count 6.6 10^3/uL (4.8-10.8)
--- NOTE | 2023-09-11 07:40 | PN.DE.MGMTRT ---
Insulin Management
- -
09/10/2023 Diabetes Management Consult
Patient admitted from Memory Care unit at [facility] due to hyperglycemia, found to have fever. PMH: R breast CA, HTN, HCL, type 2 diabetes, senile dementia, osteoporosis. Prior to admission diabetes regimen included metformin 1000 mg BID and lantus
16 units @ hS. A1C 6.7%, cr .7, egfr >60. Patient glucose on arrival 671, given 10 units novolog. 14 units HS lantus given, fasting glucose 99.
Lantus 16 units @ HS ordered. Corrective insulin changed from moderate to low. Patient is NPO. When diet resumes will restart metformin 1000 mg BID.
Will follow
09/11/2023 Diabetes Management Follow Up
Diet started, IDDSI 4 pureed, 1600 calorie added this AM. Glucose trended up to 278 pre dinner and 264 @ HS. Will resume metformin 1000 mg BID, first dose this AM. Received 16 units lantus @ hs, fasting glucose not yet reported. When reported
will assess for needed changes. A1C is 6.7%.
Diabetes History
- -
Type of Diabetes: 2
Pre-Admission Diabetes Regimen
Lab Results
Hemoglobin A1c 6.7 % (4.0-5.6) H 09/10/23 05:03
Insulin Pump Settings
IP Diabetes Regimen
09/10/23 09/10/23 09/10/23
08:06 12:13 17:05
POC Glucose 99 131 H 278 H
09/10/23 09/10/23 09/11/23
19:51 21:24 07:26
POC Glucose 243 H 264 H 107 H
Patient Education
[2023-09-11] MEDS: NOVOLOG FLEXPEN-LOW RESISTANCE SC ×3 (08:18→18:06)
[2023-09-11 09:40] LABS: ALT (SGPT) 13 U/L (0-35); AST (SGOT) 17 U/L (14-36); Albumin 3.3 g/dl (3.5-5.0); Alkaline Phosphatase 67 U/L (38-126); Blood Urea Nitrogen 11 mg/dl (7-17); Calcium 8.1 mg/dl (8.4-10.2); Carbon Dioxide 25 mmol/L (22-30); Chloride 112 mmol/L (98-107); Estimated Creatinine Clearance 66 ml/min; Glucose 109 mg/dl (70-99); Magnesium 1.2 mg/dl (1.6-2.3); Potassium 3.5 mmol/L (3.5-5.1); Sodium 139 mmol/L (135-145); Total Bilirubin 0.8 mg/dl (0.2-1.3); Total Protein 5.7 g/dl (6.3-8.2); eGFR > 60.00
[2023-09-11] MEDS: PROTONIX IV 40 MG IV (10:19)
[2023-09-11] MEDS: NSS (PRESERVATIVE FREE) 10 ML IV (10:20)
[2023-09-11] MEDS: GLUCOPHAGE 1000 MG PO (10:21)
[2023-09-11] MEDS: ZESTRIL 20 MG PO (10:21)
[2023-09-11] MEDS: RISPERDAL 0.5 MG PO (10:22)
[2023-09-11] MEDS: LOW STRENGTH ASPIRIN 81 MG PO (10:22)
[2023-09-11 11:52] LABS: Glucose - Point of Care 117 mg/dl (70-99)
--- NOTE | 2023-09-11 13:59 | W.PN.HOSP.TC ---
Today's Communication/Plan
-
cont zosyn
await speech
cut IVF in 07/15
apprec ID and CODING TECHNICIAN-DM
Assessment / Plan
Assessment / Plan
pt is a 68 year old female
Type DM-II with Hyperglycemia (was here 2021 and meds stopped due to hypoglycemia but now on insulin and metformin)--Not DKA--Insulin dose was adjusted as of 09/02 but unclear whether increased or decreased (just see order was changed on
09/02)--Continue basal:bolus insulin regimen and adjust as needed for improved control--IVF support--A1C 6.7 -apprec DM CODING TECHNICIAN
Fever with lactic acidosis--Unclear etiology--resolved?-- Denies all specific complaints on limited ROS but unclear reliability--? aspiration as had had similar in the past/has chronic dysphagia (nursing reports coughing with
eating)--Covid/flu/CXR/procalcitonin neg--cont IV zosyn--follow lactates--apprec ID
Senile Dementia (not reliable historian)--Stable--Continue risperidone.
Chronic Aphasia/Chronic Dysphagia--apprec speech--Aspiration precautions.
Essential Hypertension--Continue lisinopril with holding parameters.
DVT Prophylaxis:� Lovenox
Code Status:� DNR per NH record.
Anticipated Discharge: 24 - 48 hours
Subjective/Interval History
-
Date of Service: September 11, 2023
pt choking with feeding per nursing
Objective Data
-
Labs:
Laboratory Results
09/11/23 09/11/23
06:31 08:41
WBC 6.6
Hgb 11.1 L
Hct 32.0 L
Plt Count 153
Sodium Cancelled 139
Potassium Cancelled 3.5
Chloride Cancelled 112 H
Carbon Dioxide Cancelled 25
BUN Cancelled 11
Creatinine Cancelled 0.6
Glucose Cancelled 109 H
Calcium Cancelled 8.1 L
Total Bilirubin Cancelled 0.8
AST Cancelled 17
ALT Cancelled 13
Alkaline Phosphatase Cancelled 67
Vital Signs:
max temp for 24 hours
09/10/23
21:18
Temp 98.3 F
Vital Signs
Temp Pulse Resp BP Pulse Ox
98.3 F 59 20 182/93 98
09/11/23 11:16 09/11/23 11:16 09/11/23 11:16 09/11/23 11:16 09/11/23 11:16
I&O
09/10/23 09/11/23 09/12/23
06:59 06:59 06:59
Output Total 300 / 300
Balance -300 / -300
Review of Systems
-
Unable to obtain full review of systems at this time due to: Patient Non-verbal (aphasic)
Physical Exam
-
General: Well Developed, Well Nourished and No Apparent Distress
HEENT: Normocephalic and Atraumatic; Negative Oxygen
Respiratory: Clear to Auscultation; Negative Wheezes, Rales, Rhonchi or Crackles
Cardiac: Regular Rhythm and S1/S2; Negative Murmur
GI: Soft, Nontender, Nondistended and Normal Bowel Sounds
Musculoskeletal: No Clubbing, No Cyanosis and No Edema
Neuro: Other (aphasic--mitts on)
--- NOTE | 2023-09-11 14:00 | CM ---
Patient seen at bedside with physician. Patient plan is to return to [facility]. PT/OT recommendation is for home health. CM will update facility and call to family to review discharge plan. CM will continue to follow discharge planning
needs.
Plan; SNF vs [facility] with VN supports
--- NOTE | 2023-09-11 15:09 | PTOTSP ---
Speech Therapy Evaluation
RN reported constant coughing with lunch tray. This tallier also noted frequent episodes of the same with strong and sustained coughing, red face and eye tearing. Chin tuck was not consistently helpful and required constant cues to utilize. Cognitive
deficits along with impaired timing coordination of swallow contribute to inconsistency with tolerance. Patient is at high risk for chronic aspiration.
Recommend
1. NPO with nonoral meds or crushed in applesauce if needed.
2. GOC discussion.
3. Given advanced dementia oral diet would be more appropriate than feeding tube.
4. Oral care at east 4x/day with suction toothbrush.
5. Not appropriate for ice chips at this time.
ST will follow
[2023-09-11] MEDS: MAGNESIUM SULFATE 100 IV (15:16)
--- NOTE | 2023-09-11 15:16 | W.PN.ID1 ---
Date of Service
Date of Service: September 11, 2023
Today's Communication
D/C antibiotics and observe.
Assessment / Plan
Fever
- no further episodes
Leukocytosis
- resolved
Lactic acidosis
- resolved
Elevated glucose; improved
Breast cancer
HTN
Dyslipidemia
DM
Alzheimer's
Aphasia
Recommendations:
Clinically improved. Cultures negative to date. WBC normalized.
Will D/C further abx and observe.
Monitor white count and temperature curve.
����������������������������������������������������������
Chief Complaint
-: Fever and Leukocytosis
Subjective / Review of Systems
Review of Systems: No Fever and No Chills
Vital Signs / Physical Exam
Vital Signs
Vital Signs
Temp Pulse Resp BP Pulse Ox
98.3 F 59 20 182/93 98
09/11/23 11:16 09/11/23 11:16 09/11/23 11:16 09/11/23 11:16 09/11/23 11:16
Physical Exam
Constitutional: Comfortable, Chronically Ill and Non-toxic
Oropharyngeal: Negative Thrush
Cardiovascular: S1/S2; Negative S3/S4
Pulmonary: Non Labored
Gastrointestinal: Soft, Non Distended and Normal Bowel Sounds
Skin: Negative Rash or Jaundice
Neurological: Awake and Alert
Psychological: Confused
Objective Data
Lab Data
Lab Results
09/11/23 06:31
09/11/23 08:41
Estimated Creat Clear 66 ml/min 09/11/23 08:41
Lactic Acid 1.7 mmol/L (0.7-2.0) 09/10/23 21:19
Total Bilirubin 0.8 mg/dl (0.2-1.3) 09/11/23 08:41
AST 17 U/L (14-36) 09/11/23 08:41
ALT 13 U/L (0-35) 09/11/23 08:41
Alkaline Phosphatase 67 U/L (38-126) 09/11/23 08:41
Most recent labs reviewed.
Micro Results:
09/10/23 05:03 MRSA Screen - Final
Nose No Methicillin Resistant Staphylococcus aureus isolated.
09/09/23 22:13 Blood Culture - Preliminary
Blood/Venous No Growth in 24 hours- Final report to follow
09/09/23 20:33 Blood Culture - Preliminary
Blood/Venous No Growth in 24 hours- Final report to follow
09/09/23 20:31 Influenza Types A & B (MICHELLE) - Final
Nasal Swab Negative for Influenza A & B, NAAT
Negative results must be combined with clinical observations
and patient history.
Nucleic Acid Amplification test (NAAT)performed on the
[employer] platform.
Imaging:
09/09/2023 CXR (portable): Lungs are clear. No pleural effusion or pneumothorax seen. Heart is enlarged with mild aortic arch calcification. No acute disease is noted. Please see full dictation for additional detail. Film personally viewed.
[2023-09-11 17:25] LABS: Glucose - Point of Care 97 mg/dl (70-99)
[2023-09-11] MEDS: GLUCOPHAGE PO (18:07)
[2023-09-11] MEDS: LOVENOX SC (19:49)
[2023-09-11 21:35] LABS: Glucose - Point of Care 76 mg/dl (70-99)
--- NOTE | 2023-09-11 21:57 | W.PN.UPDATE ---
Addendum entered and electronically signed by TREVOR Richey 09/12/23 03:21:
maximus held tonight as BG remains low even with addition of d5nss
Original Note:
Update Note
Progress Note Update
0 pt strict NPO due to poss aspiration.
Pt blood sugar now on low side 76. RN reported more sleepy. Due to NPO status and BG trending low now will change ivf to d5ns and closey watch BG.
[2023-09-11] MEDS: D5/0.9% SODIUM CHLORIDE 1000 IV (22:20)
[2023-09-11] MEDS: RISPERDAL PO (22:24)
[2023-09-11] MEDS: LIPITOR PO (22:25)
[2023-09-11] MEDS: LANTUS SC (22:38)
[2023-09-11] MEDS: NSS IV (23:15)
[2023-09-12 00:09] LABS: Glucose - Point of Care 81 mg/dl (70-99)
[2023-09-12 03:25] VITALS: BP 168/109
[2023-09-12 05:30] VITALS: BMI 25.4
[2023-09-12 06:32] LABS: Glucose - Point of Care 110 mg/dl (70-99)
[2023-09-12 06:34] LABS: Hematocrit 34.1 % (37.0-47.0); Hemoglobin 11.9 g/dL (12.0-16.0); Mean Corp Hgb Conc. 34.9 g/dL (33.0-37.0); Mean Corpuscular Hgb 31.4 pg (27.0-31.0); Mean Platelet Volume 9.6 fL (7.4-10.4); Platelet Count 191 10^3/uL (130-400); Red Blood Cell Count 3.79 10^6/uL (4.20-5.40); Red Cell Dist. Width 13.4 % (11.5-14.5); White Blood Cell Count 6.4 10^3/uL (4.8-10.8)
[2023-09-12 06:57] LABS: Blood Urea Nitrogen 7 mg/dl (7-17); Carbon Dioxide 28 mmol/L (22-30); Chloride 109 mmol/L (98-107); Estimated Creatinine Clearance 66 ml/min; Glucose 120 mg/dl (70-99); Potassium 3.3 mmol/L (3.5-5.1); Sodium 139 mmol/L (135-145); eGFR > 60.00
--- NOTE | 2023-09-12 07:25 | PTCARENOTE ---
at 2200 patient lethargic, unable to give her night meds. 177/90, 68, 18, pulse ox 94% on RA. Accu check 76. Patient is NPO. WEB INTERFACE DEVELOPER aware and d/c'd NSS IV fluids and started her on D5 0.9% sodium cloride at 70/mls/hr. Per WEB INTERFACE DEVELOPER 16 units of Lantus was
held. B/l mitt d/c., patient still has video med sitter. Accucheck at 0000, -- 81 still sleepy, but arousable and attempting to hit staff when care given. Accucheck at 0630 110. Patient awake this a.m. able to turn herself in bed, bed alarm
intact. Patient incontinent of large amount of urine x 3 this shift. Plan of care continues.
[2023-09-12 07:30] VITALS: BP 176/76
--- NOTE | 2023-09-12 07:35 | PN.DE.MGMTRT ---
Insulin Management
- -
09/10/2023 Diabetes Management Consult
Patient admitted from Memory Care unit at [place] due to hyperglycemia, found to have fever. PMH: R breast CA, HTN, HCL, type 2 diabetes, senile dementia, osteoporosis. Prior to admission diabetes regimen included metformin 1000 mg BID and Lantus
16 units @ hS. A1C 6.7%, cr .7, egfr >60. Patient glucose on arrival 671, given 10 units NovoLog. 14 units HS Lantus given, fasting glucose 99.
Lantus 16 units @ HS ordered. Corrective insulin changed from moderate to low. Patient is NPO. When diet resumes will restart metformin 1000 mg BID.
Will follow
09/11/2023 Diabetes Management Follow Up
Diet started, IDDSI 4 pureed, 1600 calorie added this AM. Glucose trended up to 278 pre dinner and 264 @ HS. Will resume metformin 1000 mg BID, first dose this AM. Received 16 units Lantus @ hs, fasting glucose not yet reported. When reported
will assess for needed changes. A1C is 6.7%.
09/12/2023: Diabetes Management F/U:
Pt was made strict NPO due to failed swallow eval and increased risk of aspiration. Lantus held at HS, FBG 120 this AM.
Will HOLD Lantus and Metformin while pt remains NPO. May use corrective insulin if needed for elevated blood sugars.
Will restart Metformin and Lantus when diet resumes. Will follow
Diabetes History
- -
Type of Diabetes: 2 requiring insulin
Pre-Admission Diabetes Regimen
09/11/23 09/11/23 09/12/23
06:31 08:41 06:21
Creatinine Cancelled 0.6 0.6
Lab Results
Hemoglobin A1c 6.7 % (4.0-5.6) H 09/10/23 05:03
Insulin Pump Settings
IP Diabetes Regimen
09/11/23 09/11/23 09/11/23
06:31 08:41 11:50
Glucose Cancelled 109 H
POC Glucose 117 H
09/11/23 09/11/23 09/12/23
17:23 21:34 00:07
Glucose
POC Glucose 97 76 81
09/12/23 09/12/23
06:21 06:29
Glucose 120 H
POC Glucose 110 H
Meal type: Dinner
Meal type: Lunch
Meal type: Breakfast
Amount consumed: 15%
Amount consumed: 0
Patient Education
[2023-09-12] MEDS: GLUCOPHAGE PO ×2 (08:05→19:45)
[2023-09-12] MEDS: KCL 270 MEQ IV (08:07)
[2023-09-12] MEDS: NSS (PRESERVATIVE FREE) 10 ML IV (08:10)
[2023-09-12] MEDS: RISPERDAL 0.5 MG PO ×2 (08:10→20:44)
[2023-09-12] MEDS: PROTONIX IV 40 MG IV (08:10)
[2023-09-12] MEDS: ZESTRIL 20 MG PO (08:10)
[2023-09-12] MEDS: LOW STRENGTH ASPIRIN 81 MG PO (08:11)
[2023-09-12] MEDS: NOVOLOG FLEXPEN-LOW RESISTANCE SC ×3 (08:38→19:49)
[2023-09-12 11:34] VITALS: BP 160/81
[2023-09-12 11:47] LABS: Glucose - Point of Care 104 mg/dl (70-99)
--- NOTE | 2023-09-12 13:31 | W.PN.HOSP.TC ---
Today's Communication/Plan
-
cont IVF
daughter thinking about GOC.....
Assessment / Plan
Assessment / Plan
pt is a 68 year old female
Type DM-II with Hyperglycemia (was here 2021 and meds stopped due to hypoglycemia but now on insulin and metformin)--Not DKA--Insulin dose was adjusted as of 09/02 but unclear whether increased or decreased (just see order was changed on
09/02)--Continue basal:bolus insulin regimen and adjust as needed for improved control--IVF support--A1C 6.7 -apprec DM PARK RANGER
Fever with lactic acidosis--Unclear etiology--resolved?-- Denies all specific complaints on limited ROS but unclear reliability--? aspiration as had had similar in the past/has chronic dysphagia (nursing reports coughing with
eating)--Covid/flu/CXR/procalcitonin neg--cont IV zosyn--follow lactates--apprec ID
Senile Dementia (not reliable historian)--Stable--Continue risperidone.
Chronic Aphasia/Chronic Dysphagia--apprec speech--not safe with oral intake--spoke with daughter, Amanda, leaning towards hospice as opposed to PEG--needs 24 hours to think about it....
Essential Hypertension--Continue lisinopril with holding parameters.
DVT Prophylaxis:� Lovenox
Code Status:� DNR per NH record.
Anticipated Discharge: > 48 hours
Subjective/Interval History
-
Date of Service: September 12, 2023
pt says she is fine
Objective Data
-
Labs:
Laboratory Results
09/12/23
06:21
WBC 6.4
Hgb 11.9 L
Hct 34.1 L
Plt Count 191 D
Sodium 139
Potassium 3.3 L
Chloride 109 H
Carbon Dioxide 28
BUN 7
Creatinine 0.6
Glucose 120 H
Calcium 8.0 L
Vital Signs:
max temp for 24 hours
09/11/23
23:08
Temp 98.1 F
Vital Signs
Temp Pulse Resp BP Pulse Ox
98.9 F 60 16 160/81 93
09/12/23 11:34 09/12/23 11:34 09/12/23 11:34 09/12/23 11:34 09/12/23 11:34
I&O
09/11/23 09/12/23 09/13/23
06:59 06:59 06:59
Intake Total 360 / 360
Output Total 300 / 300
Balance -300 / -300 360 / 360
Review of Systems
-
Unable to obtain full review of systems at this time due to: Dementia
Physical Exam
-
General: Well Developed, Well Nourished and No Apparent Distress
HEENT: Normocephalic and Atraumatic; Negative Oxygen
Respiratory: Clear to Auscultation; Negative Wheezes or Rhonchi
Cardiac: Regular Rhythm and S1/S2; Negative Murmur
GI: Soft, Nontender, Nondistended and Normal Bowel Sounds
Musculoskeletal: No Clubbing, No Cyanosis and No Edema
Neuro: Awake
Psych: Calm
--- NOTE | 2023-09-12 14:00 | PTCARENOTE ---
Patient on remote video monitoring. Patient attempting to pull out IV at times. IV line wrapped with Kerlex. Patient also attempting to put telemetry leads in mouth. Will continue the remote video monitoring and frequent rounding.
--- NOTE | 2023-09-12 14:13 | PN.CDI ---
CDI
- -
CDI:
Physician Documentation Request
Admit Date: 09/10/23 00:23
Dear Doctor Deanne,
Clinical Indicators:
Patient admitted with fever and hyperglycemia.
Magnesium sulfate 4 gm IV rider x 1.
09/11 KCl 40 meq IV rider x 1.
Magnesium level:
09/11/23
08:41
Magnesium 1.2 L
Potassium level:
09/12/23
06:21
Potassium 3.3 L
Based on the above, could you clarify in the progress notes, the appropriate diagnosis, if significant, that supports the above abnormalities and additional evaluation, monitoring and/or treatment rendered:
Hypomagnesemia/Hypokalemia
Abnormal lab values, clinically insignificant
Other
Use of terms such as suspected, likely, concern for, or probable (associated with a specific diagnosis that is being evaluated, monitored, or treated as if it exists) are acceptable and can be coded in the inpatient setting, when documented at the
time of discharge.
Thank you,
JOSÉ MANUEL Vega RN
CDI Specialist
available via tiger text
Please use your independent medical judgment in providing your response.
[2023-09-12 15:15] VITALS: BP 172/94
--- NOTE | 2023-09-12 15:25 | CM ---
Patient seen at bedside. Patient daughter spoke to to Physician about options for goals of care with peg tube and hospice. Patient daughter indicated that she would be thinking about next steps. Patient is from [facility]; Personal mcc and CM
called to nurse with update. [facility] phone number [phone], Danya,nurse,update provided. [facility] unable to accept PEG tubes, patient would need to go to a Skilled faciltiy other than [facility]. IF patient would go in the direction of Hospice, the
facility does not limit hospice options, It would be up to t he Family choice. Nurse available 8-6 at [facility] [phone], patient would be able to return on hospice. CM will continue to follow for discharge planning needs
Plan; pending choice for feeding.
[2023-09-12 15:44] VITALS: BMI 25.4
[2023-09-12] MEDS: LOVENOX 40 MG SC (19:42)
[2023-09-12 19:44] LABS: Glucose - Point of Care 135 mg/dl (70-99)
[2023-09-12] MEDS: D5/0.9% SODIUM CHLORIDE 1000 IV (19:44)
[2023-09-12 19:47] VITALS: BP 134/86
[2023-09-12] MEDS: LIPITOR 20 MG PO (20:44)
[2023-09-12] MEDS: DESENEX/MITRAZOL/ZEASORB 1 APPLIC TOPICAL (20:46)
[2023-09-12 23:31] VITALS: BP 135/93
[2023-09-13 01:48] LABS: Glucose - Point of Care 176 mg/dl (70-99)
[2023-09-13] MEDS: NOVOLOG FLEXPEN-LOW RESISTANCE 1 UNITS SC ×4 (01:51→18:14)
[2023-09-13 03:48] VITALS: BP 163/23
[2023-09-13 06:00] VITALS: BMI 25.2
[2023-09-13 06:01] LABS: Glucose - Point of Care 178 mg/dl (70-99)
[2023-09-13 06:58] LABS: Hematocrit 37.2 % (37.0-47.0); Mean Corp Hgb Conc. 34.9 g/dL (33.0-37.0); Mean Corpuscular Hgb 31.9 pg (27.0-31.0); Mean Corpuscular Volume 91.2 fL (81.0-99.0); Mean Platelet Volume 9.7 fL (7.4-10.4); Platelet Count 198 10^3/uL (130-400); Red Blood Cell Count 4.08 10^6/uL (4.20-5.40); Red Cell Dist. Width 12.9 % (11.5-14.5); White Blood Cell Count 6.1 10^3/uL (4.8-10.8)
[2023-09-13 07:27] LABS: Blood Urea Nitrogen 6 mg/dl (7-17); Calcium 8.4 mg/dl (8.4-10.2); Carbon Dioxide 28 mmol/L (22-30); Chloride 102 mmol/L (98-107); Estimated Creatinine Clearance 66 ml/min; Glucose 191 mg/dl (70-99); Magnesium 1.4 mg/dl (1.6-2.3); Potassium 3.8 mmol/L (3.5-5.1); Sodium 137 mmol/L (135-145); eGFR > 60.00
[2023-09-13 07:41] VITALS: BP 156/75
[2023-09-13] MEDS: D5/0.9% SODIUM CHLORIDE 1000 IV ×2 (08:36→20:44)
[2023-09-13] MEDS: DESENEX/MITRAZOL/ZEASORB 1 APPLIC TOPICAL ×2 (08:37→20:43)
[2023-09-13] MEDS: GLUCOPHAGE PO (08:37)
[2023-09-13] MEDS: LOW STRENGTH ASPIRIN 81 MG PO (08:38)
[2023-09-13] MEDS: ZESTRIL 20 MG PO (08:38)
[2023-09-13] MEDS: RISPERDAL 0.5 MG PO ×2 (08:38→20:42)
[2023-09-13] MEDS: PROTONIX IV 40 MG IV (08:38)
[2023-09-13] MEDS: NSS (PRESERVATIVE FREE) 10 ML IV (08:39)
--- NOTE | 2023-09-13 11:06 | W.PN.HOSP.TC ---
Addendum entered and electronically signed by Elle Alicea MD 09/13/23 11:12:
hypomagnesemia--replete
hypokalemia -- replete
Original Note:
Today's Communication/Plan
-
await decision by daughter
transfer to med/surg
Assessment / Plan
Assessment / Plan
pt is a 68 year old female
Type DM-II with Hyperglycemia (was here 2021 and meds stopped due to hypoglycemia but now on insulin and metformin)--Not DKA--Insulin dose was adjusted as of 09/02 but unclear whether increased or decreased (just see order was changed on
09/02)--Continue basal:bolus insulin regimen and adjust as needed for improved control--IVF support--A1C 6.7 -apprec DM HORSE STUD WORKER
Fever with lactic acidosis--Unclear etiology--resolved?-- Denies all specific complaints on limited ROS but unclear reliability--? aspiration as had had similar in the past/has chronic dysphagia (nursing reports coughing with
eating)--Covid/flu/CXR/procalcitonin neg---apprec ID--off ABX--lactic acidosis resolved
Senile Dementia (not reliable historian)--Stable--Continue risperidone.
Chronic Aphasia/Chronic Dysphagia--apprec speech--not safe with oral intake--spoke with daughterAmanda, leaning towards hospice as opposed to PEG--needs 24 hours to think about it....coming in to see pt today 09/12
Essential Hypertension--Continue lisinopril with holding parameters.
DVT Prophylaxis:� Lovenox
Code Status:� DNR per NH record.
Anticipated Discharge: 24 - 48 hours
Subjective/Interval History
-
Date of Service: September 13, 2023
pt not talking to me today
Objective Data
-
Labs:
Laboratory Results
09/13/23
06:02
WBC 6.1
Hgb 13.0
Hct 37.2
Plt Count 198
Sodium 137
Potassium 3.8
Chloride 102
Carbon Dioxide 28
BUN 6 L
Creatinine 0.6
Glucose 191 H
Calcium 8.4
Vital Signs:
max temp for 24 hours
09/12/23
23:31
Temp 98.4 F
Vital Signs
Temp Pulse Resp BP Pulse Ox
98.5 F 66 18 156/75 92
09/13/23 07:41 09/13/23 08:38 09/13/23 07:41 09/13/23 08:38 09/13/23 08:29
I&O
09/12/23 09/13/23 09/14/23
06:59 06:59 06:59
Intake Total 360 / 360
Balance 360 / 360
Review of Systems
-
Unable to obtain full review of systems at this time due to: Other (not speaking with me today)
Physical Exam
-
General: Well Developed, Well Nourished and No Apparent Distress
HEENT: Normocephalic and Atraumatic
Respiratory: Clear to Auscultation; Negative Wheezes or Rhonchi
Cardiac: Regular Rhythm and S1/S2; Negative Murmur
GI: Soft, Nontender, Nondistended and Normal Bowel Sounds
Musculoskeletal: No Clubbing, No Cyanosis and No Edema
Neuro: Awake
[2023-09-13] MEDS: MAGNESIUM SULFATE 100 IV (12:08)
[2023-09-13 12:14] LABS: Glucose - Point of Care 165 mg/dl (70-99)
--- NOTE | 2023-09-13 13:37 | CM ---
condominium property manager spoke with patient's physician and patient's daughter they have decided on hospice, hospice referral received and disease case manager rn reached out to admissions at [facility] to discuss possible discharge tomorrow on hospice, disease case manager rn spoke
with Liset at [facility] and she stated that disease case manager rn will need to have Jade FERRELL at [facility] review chart on Friday and they cannot accept patient back tomorrow unless DON has reviewed chart. condominium property manager inquired if there is any way to reach
out to the DON before Friday to discuss patient returning to their facility on hospice and Liset stated that this is not possible.
Plan; Patient to return to [facility] on hospice.
[2023-09-13 15:36] VITALS: BP 153/80
--- NOTE | 2023-09-13 15:54 | PTCARENOTE ---
Pt sleeping for long intervals, easily arousable to name; ANDERSON. Pt non-verbal, occ nods head in response to questions. Cooperative. VSS. On room air- pulse ox 92%, denies SOB. Abd large, soft, NPO maintained. Takes PO meds with small amts
applesauce without difficulty. Incont urine. IVF's D5NS @ 70 ml/hr infusing via Lt hand site without sx of infiltration. Resting quietly at present. Will continue to monitor.
[2023-09-13] MEDS: LOVENOX 40 MG SC (17:32)
[2023-09-13 18:13] LABS: Glucose - Point of Care 173 mg/dl (70-99)
[2023-09-13 20:47] LABS: Glucose - Point of Care 168 mg/dl (70-99)
[2023-09-13] MEDS: LANTUS SC (22:00)
[2023-09-13 23:20] VITALS: BP 156/77
[2023-09-14] MEDS: NOVOLOG FLEXPEN-LOW RESISTANCE 1 UNITS SC ×3 (00:12→18:03)
[2023-09-14 00:13] LABS: Glucose - Point of Care 165 mg/dl (70-99)
[2023-09-14 06:00] VITALS: BMI 24.6
[2023-09-14 06:13] LABS: Glucose - Point of Care 182 mg/dl (70-99)
[2023-09-14 06:54] LABS: Hemoglobin 12.8 g/dL (12.0-16.0); Mean Corp Hgb Conc. 35.6 g/dL (33.0-37.0); Mean Platelet Volume 9.8 fL (7.4-10.4); Platelet Count 196 10^3/uL (130-400); Red Cell Dist. Width 12.8 % (11.5-14.5); White Blood Cell Count 5.5 10^3/uL (4.8-10.8)
[2023-09-14 07:00] VITALS: BP 160/81
[2023-09-14 07:17] LABS: Blood Urea Nitrogen 5 mg/dl (7-17); Calcium 8.4 mg/dl (8.4-10.2); Carbon Dioxide 28 mmol/L (22-30); Chloride 105 mmol/L (98-107); Estimated Creatinine Clearance 66 ml/min; Glucose 178 mg/dl (70-99); Potassium 3.6 mmol/L (3.5-5.1); Sodium 138 mmol/L (135-145); eGFR > 60.00
[2023-09-14] MEDS: PROTONIX IV 40 MG IV (08:43)
[2023-09-14] MEDS: DESENEX/MITRAZOL/ZEASORB 1 APPLIC TOPICAL ×2 (08:43→21:43)
[2023-09-14] MEDS: RISPERDAL 0.5 MG PO ×2 (08:43→21:38)
[2023-09-14] MEDS: NSS (PRESERVATIVE FREE) 10 ML IV (08:43)
--- NOTE | 2023-09-14 11:18 | W.PN.HOSP.TC ---
Today's Communication/Plan
-
plan for d/c to hospice Friday
Assessment / Plan
Assessment / Plan
pt is a 68 year old female
Type DM-II with Hyperglycemia (was here 2021 and meds stopped due to hypoglycemia but now on insulin and metformin)--Not DKA--Insulin dose was adjusted as of 09/02 but unclear whether increased or decreased (just see order was changed on
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
Fever with lactic acidosis--Unclear etiology--resolved?-- Denies all specific complaints on limited ROS but unclear reliability--? aspiration as had had similar in the past/has chronic dysphagia (nursing reports coughing with
eating)--Covid/flu/CXR/procalcitonin neg---apprec ID--off ABX--lactic acidosis resolved
Senile Dementia (not reliable historian)--Stable--Continue risperidone.
Chronic Aphasia/Chronic Dysphagia--apprec speech--not safe with oral intake--spoke with daughter, Amanda, wants hospice --planning for d/c back to [place] Friday on hospice
Essential Hypertension--Continue lisinopril with holding parameters.
DVT Prophylaxis:� Lovenox
Code Status:� DNR per NH record.
Anticipated Discharge: Within 24 hours
Subjective/Interval History
-
Date of Service: September 14, 2023
pt not talkative with me today
Objective Data
-
Labs:
Laboratory Results
09/14/23
06:03
WBC 5.5
Hgb 12.8
Hct 36.0 L
Plt Count 196
Sodium 138
Potassium 3.6
Chloride 105
Carbon Dioxide 28
BUN 5 L
Creatinine 0.6
Glucose 178 H
Calcium 8.4
Vital Signs:
max temp for 24 hours
09/13/23
15:36
Temp 98.9 F
Vital Signs
Temp Pulse Resp BP Pulse Ox
97.3 F 64 18 160/81 93
09/14/23 07:00 09/14/23 07:00 09/14/23 07:00 09/14/23 07:00 09/14/23 09:00
I&O
09/13/23 09/14/23 09/15/23
06:59 06:59 06:59
Intake Total 940 / 940
Balance 940 / 940
Review of Systems
-
All other systems: Reviewed and negative
Physical Exam
-
General: Well Developed, Well Nourished and No Apparent Distress
HEENT: Normocephalic and Atraumatic
Respiratory: Clear to Auscultation; Negative Wheezes or Rhonchi
Cardiac: Regular Rhythm and S1/S2; Negative Murmur
GI: Soft, Nontender, Nondistended and Normal Bowel Sounds
Musculoskeletal: No Clubbing, No Cyanosis and No Edema
Psych: Apparent Dementia
--- NOTE | 2023-09-14 11:18 | CM ---
Addendum entered by Amanda Granda 09/14/23 12:55:
CM spoke with daughter Amanda who requests referrals be made both to [facility] and [facility]. CM did so via [facility]. Will need to have DON involved to ensure approval of agency and return. CM to follow up tomorrow/Friday.
Original Note:
CM spoke with OSWALD Dobbs at [facility] [phone] who states their preferred hospice providers are [facility] and [facility]. Dilia explained that DON will have to approve pt's return tomorrow to facility. CM called carol Fowler [phone] and left VM
requesting callback.
[2023-09-14 11:39] LABS: Glucose - Point of Care 202 mg/dl (70-99)
[2023-09-14] MEDS: NOVOLOG FLEXPEN-LOW RESISTANCE 2 UNITS SC (13:02)
[2023-09-14] MEDS: ZESTRIL 20 MG PO (13:02)
[2023-09-14] MEDS: D5/0.9% SODIUM CHLORIDE 1000 IV (13:52)
[2023-09-14 15:05] VITALS: BP 147/73
[2023-09-14 17:56] LABS: Glucose - Point of Care 163 mg/dl (70-99)
[2023-09-14] MEDS: LOVENOX 40 MG SC (18:03)
[2023-09-14 21:14] LABS: Glucose - Point of Care 137 mg/dl (70-99)
[2023-09-14 23:21] VITALS: BP 143/81
[2023-09-15 00:10] LABS: Glucose - Point of Care 150 mg/dl (70-99)
[2023-09-15] MEDS: NOVOLOG FLEXPEN-LOW RESISTANCE 1 UNITS SC ×3 (01:08→12:05)
[2023-09-15] MEDS: D5/0.9% SODIUM CHLORIDE 1000 IV (01:08)
[2023-09-15 06:00] VITALS: BMI 24.4
[2023-09-15 06:04] LABS: Glucose - Point of Care 161 mg/dl (70-99)
[2023-09-15 07:15] VITALS: BP 163/84
--- NOTE | 2023-09-15 07:53 | PN.DE.MGMTRT ---
Insulin Management
- -
09/10/2023 Diabetes Management Consult
Patient admitted from Memory Care unit at [facility] due to hyperglycemia, found to have fever. PMH: R breast CA, HTN, HCL, type 2 diabetes, senile dementia, osteoporosis. Prior to admission diabetes regimen included metformin 1000 mg BID and Lantus
16 units @ hS. A1C 6.7%, cr .7, egfr >60. Patient glucose on arrival 671, given 10 units NovoLog. 14 units HS Lantus given, fasting glucose 99.
Lantus 16 units @ HS ordered. Corrective insulin changed from moderate to low. Patient is NPO. When diet resumes will restart metformin 1000 mg BID.
Will follow
09/11/2023 Diabetes Management Follow Up
Diet started, IDDSI 4 pureed, 1600 calorie added this AM. Glucose trended up to 278 pre dinner and 264 @ HS. Will resume metformin 1000 mg BID, first dose this AM. Received 16 units Lantus @ hs, fasting glucose not yet reported. When reported
will assess for needed changes. A1C is 6.7%.
09/12/2023: Diabetes Management F/U:
Pt was made strict NPO due to failed swallow eval and increased risk of aspiration. Lantus held at HS, FBG 120 this AM.
Will HOLD Lantus and Metformin while pt remains NPO. May use corrective insulin if needed for elevated blood sugars.
Will restart Metformin and Lantus when diet resumes. Will follow
09/15/2023: Diabetes Management F/U:
Pt non-verbal, eyes closed. Remains NPO, family has decided to proceed with hospice.
Glucose stable w/o hypoglycemic episodes, range from 137 to 202. FBG 161 this AM. remains on low corrective insulin.
Will make no changes. Closely monitor.
Diabetes History
- -
Type of Diabetes: 2
Pre-Admission Diabetes Regimen
Lab Results
Hemoglobin A1c 6.7 % (4.0-5.6) H 09/10/23 05:03
Insulin Pump Settings
IP Diabetes Regimen
09/14/23 09/14/23 09/14/23
11:38 17:55 21:13
POC Glucose 202 H 163 H 137 H
09/15/23 09/15/23
00:08 06:02
POC Glucose 150 H 161 H
Meal type: Dinner
Meal type: Lunch
Meal type: Breakfast
Patient Education
--- NOTE | 2023-09-15 08:21 | W.PN.HOSP.TC ---
Today's Communication/Plan
-
Discharge planning
Assessment / Plan
Assessment / Plan
Gen-awake, alert, NAD
HEENT-NC, AT, anicteric, clear oral mm
Neck-supple
CV-reg, no M, +S1/S2
Lungs-clear B/L
Abd-soft, NT, ND
Ext-no edema
Musculoskeletal-no cyanosis, clubbing
Skin-warm and dry
Type DM-II with Hyperglycemia -Continue sliding scale insulin. Glucose is controlled.
Fever with lactic acidosis--Unclear etiology--resolved?-- Denies all specific complaints on limited ROS but unclear reliability--? aspiration as had had similar in the past/has chronic dysphagia (nursing reports coughing with
eating)--Covid/flu/CXR/procalcitonin neg---apprec ID--off ABX--lactic acidosis resolved
Senile Dementia (not reliable historian)--Stable--Continue risperidone.
Chronic Aphasia/Chronic Dysphagia--apprec speech--not safe with oral intake--spoke with daughter, Amanda, wants hospice --planning for d/c back to [place] Friday on hospice. Patient able to take meds in applesauce according to nursing.
Essential Hypertension--Continue lisinopril with holding parameters.
DVT Prophylaxis:� Lovenox
Code Status:� DNR per NH record.
Dispo -medically stable for discharge on hospice. Awaiting acceptance hopefully in [place]. Case management aware.
Anticipated Discharge: Today
Subjective/Interval History
-
Date of Service: September 15, 2023
Patient seen and examined. Looks comfortable. Nonverbal for me.
Objective Data
-
Vital Signs:
Vital Signs
Temp Pulse Resp BP Pulse Ox
97.4 F 56 18 163/84 94
09/15/23 07:15 09/15/23 07:15 09/15/23 07:15 09/15/23 07:15 09/15/23 08:10
I&O
09/14/23 09/15/23 09/16/23
06:59 06:59 06:59
Intake Total 940 / 940 840 / 840
Balance 940 / 940 840 / 840
Review of Systems
-
Unable to obtain full review of systems at this time due to: Patient Non-verbal
[2023-09-15] MEDS: PROTONIX IV 40 MG IV (08:25)
[2023-09-15] MEDS: DESENEX/MITRAZOL/ZEASORB 1 APPLIC TOPICAL (08:25)
[2023-09-15] MEDS: RISPERDAL 0.5 MG PO (08:25)
[2023-09-15] MEDS: ZESTRIL 20 MG PO (08:25)
[2023-09-15] MEDS: NSS (PRESERVATIVE FREE) 10 ML IV (08:26)
[2023-09-15] MEDS: FLUSH (NSS) 1 FLUSH IV (08:26)
--- NOTE | 2023-09-15 11:10 | CM ---
Spoke with [facility] Susana [phone] she said that she spoke with dgt Gail and dgt wanted [facility] at [place].
LM with Ty at [place] [phone] .No call back yet.
Gail requested ambulance transport.
Medical nec form completed. DNROOH form signed by MD on chart.
Gail agreed with dc and reviewed IMM with her.All questions answered.
PLAN Return to [place] with [facility] fax [phone] via ambulance
[2023-09-15 11:15] VITALS: BP 168/75; PULSE 56
[2023-09-15 11:33] LABS: Glucose - Point of Care 177 mg/dl (70-99)
[2023-09-15] MEDS: D5/0.9% SODIUM CHLORIDE IV (12:08)
--- NOTE | 2023-09-15 12:29 | W.DS.TRANS ---
DC Summary - Permit Agent
-
Discharge Instructions:
Discharge Diagnosis/Procedures Type 2 diabetes mellitus with hyperglycemia,
fever with lactic acidosis source unknown
resolved, senile dementia, chronic aphasia with
chronic dysphagia and chronic aspiration,
essential hypertension
Diet Other diet
Additional Diets Pur�ed diet with moderately thick liquids all
presented by melo for comfort with full
supervision and assistance
Activity As tolerated
Driving Restrictions No driving
Bathing Restrictions None
Other Services Hospice
Instructions:
Stand-Alone Forms:
Changes to Home Medications: No
Discharge Medications:
DC Medications w/original date entered in [employer]
risperidone 0.5 mg tablet 0.5 mg PO BID Schizoaffective disorder 04/19/20
acetaminophen 500 mg tablet (Tylenol Extra Strength) 500 mg PO BID Pain 06/13/21
Home Medication Changes
Pending Results: No
[2023-09-15 15:15] VITALS: BP 169/81
--- NOTE | 2023-09-15 15:56 | PTCARENOTE ---
Pt awake and alert, oriented to self, at times to place, occ verbalizes 'yes' , 'No', and occ curses when disturbed. ANDERSON, OOB to chair with assist x2, legs weak. VSS. On room air- pulse ox 93%, no SOB. Abd soft, rounded, NPO maintained; freda PO
meds with small amts applesauce, aspiration prec maintained. Incont urine. Resting in bed at present; awaiting transfer to [place].
== END 2023-09-15 17:26 | disposition hospice, home (50) | DRG 638 ==
LOC: 4 EAST ACU 00:23
PROVIDERS: Emergency Medicine; Internal Medicine; ADMITTING PHYSICIAN Hospitalist; ATTENDING PHYSICIAN Hospitalist; CONSULT PHYSICIAN Student in an Organized Health Care Education/Training Program; EMERGENCY PHYSICIAN Emergency Medicine; FAMILY PHYSICIAN Family Medicine
DX: E11.65 Type 2 diabetes mellitus with hyperglycemia (principal); E87.20 Acidosis, unspecified; R47.01 Aphasia; E87.6 Hypokalemia; E83.42 Hypomagnesemia; F02.80 Dementia in other diseases classified elsewhere, unspecified severity, without behavioral disturbance, psychotic disturbance, mood disturbance, and anxiety; G30.9 Alzheimer's disease, unspecified; I10 Essential (primary) hypertension; M81.0 Age-related osteoporosis without current pathological fracture; R50.9 Fever, unspecified; Z66 Do not resuscitate; Z79.84 Long term (current) use of oral hypoglycemic drugs
CPT/HCPCS: 71045; 74230; 80048; 80053; 81003; 82010; 82550; 82805; 82962; 83036; 83605; 83735; 84145; 84443; 85025; 85027; 87040; 87070; 87502; 87811; 92526; 92610; 92611; 93005; 96361; 96365; 96372; 97116; 97162; 97530; 99291

== ENCOUNTER 2023-10-31 07:15 | Emergency (ER) | payer MEDICARE, SELFPAY ==
[2023-10-31] VITALS (22 sets, daily range): BP systolic 53–184; BP diastolic 41–115
[2023-10-31 07:53] LABS: Glucose - Point of Care 162 mg/dl (70-99)
[2023-10-31 08:24] LABS: % Basophils 0.6 % (0-2); % Eosinophils 0.8 % (0-6); % Immature Granulocytes 0.9 % (0-0.5); % Lymphocytes 12.7 % (20.5-51.1); % Monocytes 7.1 % (1.7-9.3); % Neutrophils 77.9 % (42.2-75.2); Absolute Basophils 0.1 10^3/uL (0-0.2); Absolute Eosinophils 0.1 10^3/uL (0-0.7); Absolute Immature Granulocytes 0.1 10^3/uL (0-0.05); Absolute Lymphocytes 1.8 10^3/uL (1.2-3.4); Absolute Neutrophils 10.9 10^3/uL (1.4-6.5); Hematocrit 41.2 % (37.0-47.0); Hemoglobin 13.7 g/dL (12.0-16.0); Mean Corp Hgb Conc. 33.3 g/dL (33.0-37.0); Mean Corpuscular Hgb 31.3 pg (27.0-31.0); Mean Corpuscular Volume 94.1 fL (81.0-99.0); Nucleated Red Blood Cells % 0 %; Platelet Count 381 10^3/uL (130-400); Red Blood Cell Count 4.38 10^6/uL (4.20-5.40)
--- NOTE | 2023-10-31 08:25 | ED.GENMED ---
History of Present Illness
General
Chief Complaint: Fall
Source: records, ambulance crew and previous hospital records
Exam Limitations: dementia
Time Seen by Provider: 10/31/23 07:19
Nursing documentation reviewed up to this point in time: agreed with
Travel History
Have you had any contact with someone who has COVID-19?: Unable to Answer
Do you have any symptoms of coronavirus? Fever > 100 degrees, chills, cough, shortness of breath, sore throat, loss of taste or smell, muscle aches, or headache?: Unable to Answer
History of Present Illness
History of Present Illness:
Patient is a 68-year-old demented female who presents to the emergency department after reportedly escaping from her locked unit and then fell injuring her face. Patient is really not able to give much further history. Patient denies any neck or
back pain. Patient denies chest or abdominal pain. Patient denies any extremity pain. However this is not particularly reliable as the patient is demented
Past History
Past History
ED Past Medical History: Cancer (Right breast cancer), HTN, Hypercholesterolemia, NIDDM and Other (osteoporosis, Alzheimer's dementia)
ED Past Surgical History: Gynecological (Right breast lumpectomy)
Patient has exhibited threatening behavior?: No
PSI?: No
Social History
Tobacco: Non-smoker
Alcohol: None
Personal:
Living: alf
Family History
Family History: Unable to obtain
Review of Systems
Review of Systems
All Other Systems: Not applicable
Phy Exam
Physical Exam
Physical Exam:
Physical Exam
General: mild distress, alert and restless, well nourished, well hydrated
HENT: Normocephalic mild periorbital ecchymosis on the right and superficial laceration of the nose as well as bilateral epistaxis but no septal hematoma, no tracheal deviation or contusion
Eyes: Clear sclera, conjuctiva without injection, extraocular muscles intact with moderate periorbital ecchymosis about the right eye and minimal about the left eye
Heart: Regular rhythm and rate. No S3, S4. No murmur. No NVD
Lungs: No respiratory distress, no stridor, lung sounds clear and equal bilaterally, chest wall symmetrical and nontender
Abdomen: Soft, nontender, BS good
Neuro: Alert, CN II - XII intact, no motor focality
Skin: Laceration as stated above
Psychiatric: well kept. interactive and cooperative
Extremities: No edema, cyanosis, tenderness
Musculoskeletal: No apparent cervical, thoracic or lumbar spine tenderness
Course
Orders/Labs/Results
Orders:
Orders
10/31/23
CR Chest Portable - 1 View Urgent
Reason For Exam: ET TUBE RE-ADJUST
CR Chest Portable - 1 View Urgent
Reason For Exam: INTUBATED
10/31/23 07:29
CT Cervical Spine W/o Iv Contr Urgent
Comment:
Reason For Exam: fall dementia facial trauma
CT Head W/o Iv Contrast Urgent
Comment:
Reason For Exam: fall onto face dementia
10/31/23 07:52
NT-proBNP Urgent
Troponin I Urgent
10/31/23 07:53
Electrocardiogram (*1) Urgent
Reason for Study: Shortness of Breath
EKG- Treatment ONCE
Urinalysis Reflex To Culture Urgent
Date Specimen was Collected: 10/31/23
Time Specimen was Collected: 09:52
10/31/23 08:01
Electrocardiogram (*1) Urgent
Reason for Study: Syncope
10/31/23 08:02
EKG- Treatment ONCE
10/31/23 08:04
Type+Screen Urgent
CMP [Comprehensive Metabolic Panel] Urgent
Complete Blood Count/With Diff Urgent
PT/INR [Prothrombin Time] Urgent
PTT Urgent
10/31/23 08:08
CT Facial Bones W/o Iv Contras Urgent
Comment:
Reason For Exam: facial trauma
10/31/23 08:09
FentaNYL 1,000 MCG/100 ML [Sublimaze] 1,000 mcg in 100 ml IV NOW
Indication:: Light Sedation
Begin Infusion:: Now
Goal:: pain score </= 1, CPOT 0-2
Maximum dose in mcg/hr:: 300
Initial Dose in mcg/hr:: 50
Titration Instructions:: Titrate every 30 minutes if patient exhibits signs of pain or discomfort
Titration Instructions:: (pain score >/= 2, CPOT >/= 3).
Titration Instructions:: Administer bolus dose and increase infusion by 25 mcg/hr.
Taper Instructions:: If pain score at goal for 4 consecutive hours (pain score </= 1, CPOT 0-2)
Taper Instructions:: decrease infusion by 50 mcg/hr every 2 hours.
Taper Instructions:: When dose </= 50 mcg/hr may turn infusion off and consider PRN
Taper Instructions:: intermittent bolus doses only.
Over-sedation Instructions:: If CPOT 0-2 (goal) and RASS -3 to -5 (below goal) decrease sedative by 50%
Over-sedation Instructions:: first. If pain score remains at goal and RASS remains below goal in 1 hour,
Over-sedation Instructions:: decrease opioid infusion by 50%.
Notify provider:: immediately if pt exhibits: chest wall rigidity, hemodynamic instability,
Notify provider:: agitation/pain despite maximum dosing, pain when RASS below goal.
Additional Instructions:: Patient MUST be mechanically ventilated.
Fentanyl Citrate/Pf [Sublimaze] 50 mcg IV NOW STA
Fentanyl Citrate/Pf [Sublimaze] 50 mcg IV NOW STA
Fentanyl Citrate/Pf [Sublimaze] 50 mcg IV [id number] PRN
10/31/23 08:13
FentaNYL 1,000 MCG/100 ML [Sublimaze] 1,000 mcg in 100 ml .ROUTE .STK-MED
Fentanyl Citrate/Pf [Sublimaze] 100 mcg .ROUTE .STK-MED ONE
10/31/23 08:21
Propofol [Diprivan] 20 ml .ROUTE .STK-MED
10/31/23 08:52
NORepinephrine 4 MG/250 ML [Levophed] 4 mg in 250 ml .ROUTE .STK-MED
10/31/23 08:56
Fentanyl Citrate/Pf [Sublimaze] 50 mcg IV NOW STA
10/31/23 09:00
NORepinephrine 4 MG/250 ML [Levophed] 4 mg in 250 ml IV PER PROTOCOL
10/31/23 09:11
ABG [Arterial Blood Gas] Urgent
%Oxygen/Room Air: 100
10/31/23 09:17
Propofol 1,000,000 Mcg/100 ml [Diprivan] 1,000,000 mcg in 100 ml .ROUTE .STK-MED
10/31/23 09:37
Midazolam HCl [Versed] 2 mg .ROUTE .STK-MED ONE
10/31/23 09:38
Midazolam HCl [Versed] 2 mg IV NOW STA
10/31/23 09:52
EKG [Electrocardiogram (*1)] Urgent
Reason for Study: Fatigue / Weakness
EKG- Treatment ONCE
10/31/23 10:00
FentaNYL 1,000 MCG/100 ML [Sublimaze] 1,000 mcg in 100 ml IV PER PROTOCOL
Propofol 1,000,000 Mcg/100 ml [Diprivan] 1,000,000 mcg in 100 ml IV PER PROTOCOL
Abnormal Lab Results
10/31/23 10/31/23 10/31/23
07:42 08:04 09:11
WBC 14.0 H 10^3/uL
(4.8-10.8)
MCH 31.3 H pg
(27.0-31.0)
Abs Immat Gran (auto) 0.1 H 10^3/uL
(0-0.05)
Absolute Neuts (auto) 10.9 H 10^3/uL
(1.4-6.5)
Absolute Monos (auto) 1.0 H 10^3/uL
(0.1-0.6)
Immature Gran % 0.9 H %
(0-0.5)
Neutrophils % 77.9 H %
(42.2-75.2)
Lymphocytes % 12.7 L %
(20.5-51.1)
pH 7.32 L
(7.35-7.45)
pCO2 46 H mmHg
(32-35)
pO2 324 H mmHg
(83-108)
ABG O2 Sat (Measured) 100.0 H %
(94-98)
BUN 24 H mg/dl
(7-17)
Glucose 131 H mg/dl
(70-99)
POC Glucose 162 H mg/dl
(70-99)
10/31/23 08:04
10/31/23 08:04
Vital Signs
Initial and Last Documented VS:
Initial Vital Signs
Temp Pulse Resp BP Pulse Ox
97.8 F 124 20 133/86 96
10/31/23 07:20 10/31/23 07:20 10/31/23 07:20 10/31/23 07:20 10/31/23 07:20
Last Documented Vital Signs
Temp Pulse Resp BP Pulse Ox
97.8 F 104 19 117/77 98
10/31/23 07:20 10/31/23 10:15 10/31/23 10:15 10/31/23 10:00 10/31/23 10:15
Procedures
Intubations
Procedure completed by: kevin
Method of Intubation: curved blade and glidescope
Tube size (cm): 8.0
Placement confirmed by: auscutation, CXR, capnography, placement corrected and direct visualization
Breath sounds after intubation: equal
Intubation complications: no complications
*Radiology
Radiology exam reviewed: radiology read reviewed (CT of the brain unremarkable. CT of the facial bones shows LeFort II fracture with blood and air in the sinuses of as well as the orbits but no entrapment. Possible superior endplate fractures of
C4 and C5 as well as a teardrop fracture of C6 but no significant loss of vertebral height and spinal )
*Pulse Oximetry
Patient hypoxic: no
*EKG
Interpreted by ED Provider?: Yes
EKG Intrepretation Date: 10/31/23
EKG Intrepretation Time: 10:18
Interpretation: abnormal
Comparison EKG: no changes
Heart Rate: 100
Rate: normal
Rhythm: sinus
[place]: left axis deviation
Interval: normal interval
QRS Pattern: right bundle branch block
Ischemia: non-specific ST changes
*Phlebotomy Lab Assistant Interpretation
Rate: tachycardiac
Interpretation: abnormal
Heart Rate: 120
Rhythm: sinus
*Critical Care Note
Total Time (30-74mins, 75-104mins- exclusive of procedures): 45 minutes
Update Note
Update Note:
Patient had to be intubated due to transient hypoxia and change in mental status which I believe is secondary to aspiration of blood from her epistaxis. Patient CT of her brain is unremarkable. Patient has nondisplaced and stable cervical spine
fracture with no impingement in cervical cord. Patient does have a LeFort II fracture. Spoke with the trauma center and we will transfer her to [place]. In addition the patient's daughter was notified and agreed to the transfer.
ED Attending Note
-
Portions of this chart may have been created with voice recognition software.� Occasional wrong word or��sound alike� substitutions may have occurred due to the inherent limitations of voice recognition software.
Discharge Plan
Departure
Patient Disposition: Acute Care Hospital
Date of Disposition: 10/31/23
Time of Disposition: 10:13
Patient with high blood pressure during this ER visit?: Yes
Condition: Serious
Covid-19: Not Applicable
Discharge Problem:
Fall, Facial fracture due to fall, Epistaxis due to trauma, LeFort II fracture, C6 stable fracture, Respiratory failure after trauma
Prescriptions:
No Action
sennosides [senna] 8.6 mg Tablet
8.6 mg PO DAILY PRN (Reason: if no BM in 3 days)
atorvastatin 20 mg Tablet
20 mg PO DAILY@1999
lisinopril 20 mg Tablet
20 mg PO DAILY
cyanocobalamin (vitamin B-12) 1,000 mcg Tablet
1,000 mcg PO DAILY
acetaminophen [Tylenol Extra Strength] 500 mg Tablet
500 mg PO BID
lorazepam 0.5 mg Tablet
0.5 mg PO Q4HPRN PRN (Reason: anxiety)
metformin 1,000 mg Tablet
1,000 mg PO BID
aspirin 81 mg Tablet,Chewable
81 mg PO DAILY
risperidone 0.5 mg Tablet
0.5 mg PO BID
insulin glargine [Basaglar KwikPen U-100 Insulin] 100 unit/mL (3 mL) Insulin Pen
16 unit SC HS
Referrals:
Clarisa Min CRNP [Family Provider] -
Hospital Transfer
Other hospital: [place]
I certify that the patient requires transfer: Yes
Discussed case with accepting physician: Trauma
Reason for transfer: higher level of care and specialties available
Interventions
Interventions:
*Risk Screen - Suicide Last Done: 10/31/23 07:20
*General Assessment Last Done: 10/31/23 07:20
*Neglect/Abuse Screening Last Done: 10/31/23 07:20
ED- Fall Risk Assessment Last Done: 10/31/23 08:00
ED-Musculoskeletal Assessment Last Done: 10/31/23 08:00
ED- Neurological Assessment Last Done: 10/31/23 08:00
Discharge Date and Time
Print Language: CENTRAL AFRICAN
[2023-10-31 08:34] LABS: INR 1.13; PT 14.4 Sec (11.4-14.6)
[2023-10-31 08:35] LABS: APTT 24.9 Sec (23.4-35.0)
[2023-10-31 08:37] LABS: ALT (SGPT) 14 U/L (0-35); AST (SGOT) 19 U/L (14-36); Albumin 4.2 g/dl (3.5-5.0); Alkaline Phosphatase 88 U/L (38-126); Blood Urea Nitrogen 24 mg/dl (7-17); Calcium 9.3 mg/dl (8.4-10.2); Carbon Dioxide 27 mmol/L (22-30); Chloride 103 mmol/L (98-107); Glucose 131 mg/dl (70-99); Potassium 4.6 mmol/L (3.5-5.1); Sodium 140 mmol/L (135-145); Total Bilirubin 0.6 mg/dl (0.2-1.3); Total Protein 6.7 g/dl (6.3-8.2); eGFR > 60.00
[2023-10-31] MEDS: SUBLIMAZE 50 MCG IV ×5 (09:09→11:53)
[2023-10-31] MEDS: SUBLIMAZE 100 IV (09:13)
[2023-10-31 09:18] LABS: B.E. -2.5 mmol/L; HCO3 23.7 mmol/L (21-28); PCO2 46 mmHg (32-35); PO2 324 mmHg (83-108); pH 7.32 (7.35-7.45)
[2023-10-31] MEDS: DIPRIVAN 100 IV (09:28)
[2023-10-31] MEDS: VERSED 2 MG IV (09:47)
[2023-10-31 10:32] LABS: Urine Albumin 2+ (Neg - Trace); Urine Bilirubin 1+ (Negative); Urine Character Slightly Cloudy (Clear); Urine Glucose 1+ (Negative); Urine Ketone 1+ (Negative); Urine Leukocyte Negative (Negative); Urine Nitrite Negative (Negative); Urine Occult Blood Negative (Negative); Urine Specific Gravity 1.025 (<1.030); Urine Urobilinogen Negative (Neg - 1+)
[2023-10-31 10:34] LABS: Urine Color Yellow
[2023-10-31 10:45] LABS: Urine Amorphous Seen
[2023-10-31 10:46] LABS: Urine Bacteria Moderate (Negative)
== END 2023-10-31 11:30 | disposition short-term general hospital (02) ==
LOC: EMR 07:15
PROVIDERS: EMERGENCY PHYSICIAN Emergency Medicine; FAMILY PHYSICIAN Nurse Practitioner Family
DX: S02.2XXA Fracture of nasal bones, initial encounter for closed fracture (principal); S02.412A LeFort II fracture, initial encounter for closed fracture; S12.500A Unspecified displaced fracture of sixth cervical vertebra, initial encounter for closed fracture; W19.XXXA Unspecified fall, initial encounter; J96.91 Respiratory failure, unspecified with hypoxia; F02.811 Dementia in other diseases classified elsewhere, unspecified severity, with agitation; I10 Essential (primary) hypertension; G30.9 Alzheimer's disease, unspecified
CPT/HCPCS: 99291; 31500; 96374; 96375; 99152; 96376 ×3; 70450; 70486; 71045; 72125; 80053; 81003; 81015; 82805; 82962; 85025; 85610; 85730; 86850; 86900; 86901; 87086; 93005; 94002